=== PATIENT | male | born 1970 | race African-American/Black ===

== ENCOUNTER 2017-08-30 10:55 | Emergency (ER) | payer SELFPAY ==
[2017-08-30 10:55] VITALS: BP 152/96; PULSE 76; RESP 14; TEMP 98.6; O2SAT 99
[~2017-08-30 10:55] MED LIST: ADVI200C9 PO; BACT800T5 PO; IBUP800T23 PO; Z.0.NO CURRENT MEDS
--- NOTE | 2017-08-30 11:53 | RADRPT ---
EXAM DATE/TIME: 08/30/2017 11:43 [place] COMPARISON: No previous studies available for comparison. INDICATIONS : Patient hit head 5 days ago on kitchen cabinet, head still hurts, feels disorented and i have nausea RADIATION DOSE: 35.09 CTDIvol (mGy) MEDICAL HISTORY : HPV SURGICAL HISTORY : None. ENCOUNTER: Initial ACUITY: 4 - 6 days PAIN SCALE: 5/10 LOCATION: cranial TECHNIQUE: Multiple contiguous axial images were obtained of the head. Using automated exposure control and adj ustment of the mA and/or kV according to patient size, radiation dose was kept as low as reasonably a chievable to obtain optimal diagnostic quality images. DICOM format image data is available electro nically for review and comparison. FINDINGS: CEREBRUM: The ventricles are normal for age. No evidence of midline shift, mass lesion, hemorrhage or acute in farction. No extra-axial fluid collections are seen. POSTERIOR FOSSA: The cerebellum and brainstem are intact. The 4th ventricle is midline. The cerebellopontine angle i s unremarkable. EXTRACRANIAL: The visualized portion of the orbits is intact. SKULL: The calvaria is intact. No evidence of skull fracture. CONCLUSION: No acute intracranial abnormality. Good Mooney MD on August 30, 2017 at 11:50 Board Certified Radiologist. This report was verified electronically.
--- NOTE | 2017-08-30 13:53 | PD ---
HPI Chief Complaint: Headache Time Seen by Provider: 13:44 Travel History International Travel<30 days: No Contact w/Intl Traveler<30days: No Traveled to known affect area: No History of Present Illness HPI 47-year-old male presents for evaluation of closed head injury. He reports a 5 days ago he believes that he hit the back of his head against the cabinet door. Since then he has had some soreness localized to the occipital scalp region but he has also had nausea, fatigue, difficulty focusing. He reports that nausea resolved but the fatigue and difficulty focusing a persistent which prompted evaluation. He denies any blurred vision, vomiting, focal weakness. He is not on any anticoagulation. He has no other complaints at this time. [facility] Social History Alcohol Use: No Tobacco Use: No Substance Use: No Allergies-Medications (Allergen,Severity, Reaction): Coded Allergies: No Known Allergies (Verified , 04/05/14) Reported Meds & Prescriptions Reported Meds & Active Scripts Active No Active Prescriptions or Reported Medications Review of Systems Except as stated in HPI: all other systems reviewed are Neg Physical Exam Narrative GENERAL: Well-developed well-nourished male in no acute distress SKIN: Warm and dry. HEAD: There is a small occipital scalp contusion which is tender to palpation. Normocephalic. EYES: Pupils equal and round. No scleral icterus. No injection or drainage. ENT: No nasal bleeding or discharge. Mucous membranes pink and moist. NECK: Trachea midline. No JVD. CARDIOVASCULAR: Regular rate and rhythm. No murmur appreciated. RESPIRATORY: No accessory muscle use. Clear to auscultation. Breath sounds equal bilaterally. MUSCULOSKELETAL: No obvious deformities. No clubbing. No cyanosis. No edema. NEUROLOGICAL: Awake and alert. No obvious cranial nerve deficits. Motor grossly within normal limits. Normal speech. Normal finger to nose. PSYCHIATRIC: Appropriate mood and affect; insight and judgment normal. Data Data Last Documented VS Vital Signs Date Time Temp Pulse Resp B/P (MAP) Pulse Ox O2 Delivery O2 Flow Rate FiO2 08/30/17 10:55 98.6 76 14 152/96 (114) [address] Brain W/O Iv Contrast(Rout) (08/30/17 ) [facility] Medical Decision Making Medical Screen Exam Complete: Yes Emergency Medical Condition: Yes Medical Record Reviewed: Yes Differential Diagnosis Concussion, closed head injury, skull fracture, intracranial hemorrhage Narrative Course A CT of the brain was obtained in triage and it is negative for acute process. His symptoms are consistent with concussion. He is stable for discharge. Diagnosis Primary Impression: Concussion Qualified Codes: S06.0X0A - Concussion without loss of consciousness, initial encounter Additional Instructions: Physical and cognitive rest are the treatment for concussion. Avoid activities that exacerbate your symptoms. Follow-up with primary care physician in one to 2 weeks. Return for any emergent medical conditions. Med/Other Pt SpecificInfo: No Change to Meds Scripts No Active Prescriptions or Reported Meds Disposition: 01 DISCHARGE HOME Condition: Stable Trace Blanca Aug 30, 2017 13:53
== END 2017-08-30 14:12 | disposition home or self-care (01) ==
LOC: NEPK 10:55
DX: S06.0X0A Concussion without loss of consciousness, initial encounter (principal); W22.8XXA Striking against or struck by other objects, initial encounter
CPT/HCPCS: 70450; 99284